=== PATIENT | male | born 1990 | race Hispanic/Latino ===

== ENCOUNTER 2018-06-15 17:17 | Emergency (ER) | payer OTHER ==
[~2018-06-15] VITALS: Ht 165.1 cm; Wt 77.3 kg
--- NOTE | 2018-06-15 18:49 | REP ---
REASON: Left sided pain. COMPARISON: None. The right testicle measures 4.3 x 2.4 x 2.8 cm and the left measures 4.0 x 2.4 x 3.0 cm. Tiny scattered echogenic foci are seen within each testicle consistent with microlithiasis. There is no evidence of a solid intratesticular mass. There are bilateral multiple spermatoceles, the largest on the right 3.7 cm. The largest on the right is 3.7 mm and on the left the largest is 2.9 mm. Normal intratesticular vascular pattern bilateral Evaluation of penniform plexus shows increased dilatation of vascular structures consistent with a varicocele. The right testicular RI is 0.43 and the left is 0.62. IMPRESSION:1. No solid mass. 2. Slight bilateral microlithiasis. 3. Left sided varicocele. 4. Bilateral spermatoceles. 5. Minimal bilateral hydroceles. Electronically Signed by Sree Quijano DO 06/15/2018 07:01 P
[2018-06-15 19:04] VITALS: BP 130/76
[2018-06-15] MEDS ORDERED: IBUP-1022 PO (19:04)
[2018-06-15 21:24] LABS: CHLAMYDIA DNA AMPLIFICATION NEGATIVE (NEGATIVE); GC DNA AMPLIFICATION NEGATIVE (NEGATIVE)
--- NOTE | 2018-06-16 05:42 | ED PDOC ---
Post-Departure Follow-Up ft oswald fp faxed formal report of scrotal us for fu Yennifer Amin MD Jun 16, 2018 05:42
== END 2018-06-15 19:08 | disposition home or self-care (01) ==
LOC: M ED 17:17
DX: I86.1 Scrotal varices (principal); N50.3 Cyst of epididymis; N50.89 Other specified disorders of the male genital organs